=== PATIENT | female | born 1965 | race Caucasian/White ===

== ENCOUNTER → 2018-10-26 | Outpatient (CLI) | payer BC ==
--- NOTE | 2018-10-26 11:35 | Diagnostic Imaging Report ---
INDICATION: Right shoulder pain with recent fall. COMPARISON: None available. TECHNIQUE: Two views of the right shoulder were obtained. FINDINGS: Glenohumeral and acromioclavicular joints are normal in alignment. No fracture. Subacromial space is preserved. No abnormal soft tissue mineralizations. Visualized aspects of the right lung are clear. IMPRESSION: No fracture or malalignment involving the right shoulder. Dictated by: Dictated on workstation # [id number]
== END ==
LOC: RAD FS 11:06
PROVIDERS: ATTEND Nurse Practitioner Family
DX: M25.511 Pain in right shoulder (principal)
CPT/HCPCS: 73030

== ENCOUNTER 2019-04-23 15:23 | Emergency (ER) | payer BC ==
[~2019-04-23] VITALS: Ht 162.6 cm; Wt 289.0 kg
[2019-04-23 15:25] VITALS: BP 152/59
--- NOTE | 2019-04-23 15:36 | ED Lower Extremity ---
General Stated Complaint: L KNEE PAIN - HEARD IT POP Source: patient History of Present Illness Date Seen by Provider: Apr 23, 2019 Time Seen by Provider: 15:31 Initial Comments 54-year-old female presents with left knee pain. Patient has had left knee pain for at least a couple months. She reports she started having a back in January. Patient was seen last week by her primary provider and had a negative knee x- ray. Showing only osteoarthritis. Patient reports that today she was walking twisted funny and he "heard a pop. She has pain along the medial joint line. She has pain when she ambulates. She complains of some mild swelling. Patient reports she is able to bear weight on a better hurts. She has no laxity. Method of Injury: twisted Allergies and Home Medications Patient Home Medication List Home Medication List Reviewed: Yes Review of Systems Constitutional: No chills, No fever EENTM: see HPI Respiratory: no symptoms reported Cardiovascular: no symptoms reported Gastrointestinal: no symptoms reported Genitourinary: no symptoms reported Musculoskeletal: see HPI Skin: no symptoms reported Psychiatric/Neurological: No Symptoms Reported Past Xvewjbf-Amokrl-Bqritl Hx Past Med/Social Hx: Reviewed Nursing Past Med/Soc Hx Physical Exam Vital Signs Capillary Refill : Height, Weight, BMI Height: '" Weight: lbs. oz. kg; BMI Method: General Appearance: obese (morbid) Cardiovascular: normal peripheral pulses, regular rate, rhythm Respiratory: chest non-tender, lungs clear Gastrointestinal: non tender, soft Knees: left knee other (patient with medial joint line tenderness and positive patellar compression test consistent with likely meniscal injury. There is no noticeable laxity. Patient is morbidly obese complains of swelling but I do not note any acute swelling but normal body habitus or contusion) Progress/Results/Core Measures Progress Progress Note : Time: 15:48 Progress Note Patient with likely meniscal injury. Patient will be given crutches. Patient was offered knee immobilizer. She continues wqli-ahj-nmcjgff ibuprofen, I will prescribe her Naprosyn if she would like to use this instead. She can use topical lidocaine. Patient should follow-up with her primary care provider or with the pediatric to arrange for an MRI or physical therapy for further management Departure Impression Primary Impression: Internal derangement of left knee Disposition: HOME, SELF-CARE Condition: Stable Departure-Patient Inst. Referrals: [facility] Primary Care Physician DIPIKA THOMASON APRN (Family) Primary Care Physician Patient Instructions: Internal Derangement of the Knee (DC) Add. Discharge Instructions: Follow-up with your primary care provider or policy specialist for further imaging such as an MRI or physical therapy referral 4% topical lidocaine with menthol to affected area as directed on package Nathan wrap to affected knee or qgcv-ntm-cuiuhut knee immobilizer/knee sleeve Emergency department focuses on treating and ruling out life-threatening diseases. Whenever possible, a diagnosis is given. However, most patients are given an impression based on their history, physical exam, and workup during your brief time in the ER. Information about probable diagnosis and other educational material has been provided. Please take the time to read and understand this information. It is very important that you follow up with a physician as discussed during the visit today. Failure to adhere to your follow-up instructions may lead to severe disability, injury, or so please make sure to keep your appointments or obtain one as requested. Please keep in mind the emergency department is not designed to your primary care or "family doctor" and nonurgent issues are best evaluated by an outpatient physician Scripts Naproxen (Naprosyn) 500 Mg Tablet 500 MG PO BID, #30 TAB 0 Refills Prov: NEELA QUEZADA DO 04/23/19 NEELA QUEZADA DO Apr 23, 2019 15:36
[2019-04-23] MEDS ORDERED: NAPR-1071 PO (15:51)
--- OUTSIDE RECORDS SUMMARY | 2019-04-24 20:03 | XMS REPORT ---
Author Author Migration, Mariella Doctor Organization [facility] Address Unknown Phone Unavailable Care Team Providers Care Underpresser Hand Name Role Phone Migration, Doctor Unavailable Unavailable PROBLEMS Type Condition ICD9-CM Code [id number] Code Onset Dates Condition S tatus SNOMED Code Problem Essential hypertension, benign 401.1 Active 2225492 Problem Essential (primary) hypertension I10 Active 54943839 Problem Hypercholesteremia E78.00 Active 1 2184743 Problem Unspecified hypothyroidism 244.9 Act sabrina 57570341 Problem History of anemia Z86.2 Active 27 5479908 Problem Mixed hyperlipidemia E78.2 Active 681878228 Problem Hypothyroidism, unspecified E03.9 Ac tive 89476070 ALLERGIES No Information ENCOUNTERS Encounter Location Date Diagnosis [address] [address] June, [address] [address] 23 May, [address] [address] 16 May, 2018 Breast cancer screening Z12.[address] [address] 15 May, [address] [address] 09 May, 2018 Morbid obesity E66.01 ; Well woman exam with routine gynecological exam Z01.419 ; Breast cancer screening Z12.31 and Pelvic cramping R10.[address] [address] Apr, Hypercholesteremia E78.00 and Hypothyroi dism, unspecified E03.[address] [address] Apr, Essential (primary) hypertension I10 ; H ypothyroidism, unspecified E03.9 ; History of anemia Z86.2 ; Mixed hyperlipidemia E78.2 and Morbid obesity E66.01 [facility] [address] [facility] [id number] [address] [place] [address] May, [facility] [address] [facility] [id number] [address] [place] [address] May, [facility] [address] [facility] [id number] [address] [place] [address] Sep, [facility] [address] [facility] [id number] [address] [place] [address] Sep, [facility] [address] [facility] [id number] [address] [place] [address] Sep, [facility] [address] [facility] [id number] [address] [place] [address] Sep, IMMUNIZATIONS No Known Immunizations SOCIAL HISTORY Never Assessed REASON FOR VISIT EMR-[facility] PLAN OF CARE VITAL SIGNS MEDICATIONS Unknown Medications RESULTS No Results PROCEDURES No Known procedures INSTRUCTIONS MEDICATIONS ADMINISTERED No Known Medications MEDICAL (GENERAL) HISTORY Type Description Date Medical History hypertension, benign Medical History Hypothyroidism Surgical History cholecystectomy 11/2014 Hospitalization History see surgical
--- OUTSIDE RECORDS SUMMARY | 2019-04-24 20:03 | XMS REPORT ---
Author Author Mariella THOMASON Organization [facility] Address [address] [place] [address] Care Team Providers Care Accounts Payables Clerk Name Role Phone DIPIKA THOMASON Unavailable PROBLEMS Type Condition ICD9-CM Code [id number] Code Onset Dates Condition S tatus SNOMED Code Problem Hypercholesteremia E78.00 Active 1 1714050 Problem Postmenopausal bleeding N95.0 Active 14184652 Problem Mixed hyperlipidemia E78.2 Active 108300168 Problem Hypothyroidism, unspecified E03.9 Ac tive 13678692 Problem Essential (primary) hypertension I10 Active 08748031 Problem History of anemia Z86.2 Active 27 2744545 ALLERGIES No Known Allergies ENCOUNTERS Encounter Location Date Diagnosis [address] [address] Feb, Strain of left knee and leg, initial encounter S86.912A [address] [address] Jan, Hypothyroidism, unspecified E03.9 [address] [address] Dec, Essential (primary) hyperten sid I10 and Hypothyroidism, unspecified E03.9 [address] [place] [address] Dec, Hypothyroidism, unspecified E03.9 [address] [address] Oct, [address] [address] Oct, Essential (primary) hyperten sid I10 [address] [address] Oct, Acute pain of left shoulder M25.512 and Fall, initial encounter W19.XXXA [address] [address] Oct, Encounter to discuss test re sults Z71.2 and Endometrioid adenocarcinoma of uterus C55 [address] [place] [address] Oct, Postmenopausal bleeding N95. 0 ; Endometrial thickening on ultrasound R93.89 ; Enlarged uterus N85.2 and Morbid obesity E66.01 [address] [place] [address] Sep, Hypercholesteremia E78.00 [address] [place] [address] Sep, Elevated liver enzymes R74.8 and Enlarged liver R16.[address] [address] Aug, Elevated liver enzymes R74.8 ; Hypothyroidism, unspecified E03.9 and Postmenopausal bleeding N95.[address] [place] [address] Aug, Hypothyroidism, unspecified E03.9 ; Elevated liver enzymes R74.8 and Postmenopausal bleeding N95.0 [address] [place] [address] Aug, Hypothyroidism, unspecified E03.9 and Hypercholesteremia E78.00 [address] [place] [address] Aug, [address] [place] [address] Jul, Essential (primary) hyperten sid I10 [address] [place] [address] June, Morbid obesity E66.01 and At ypical squamous cells cannot exclude high grade squamous intraepithelial lesion on cytologic smear of cervix (ASC-H) R87.611 [address] [place] [address] 23 May, 2018 [address] [place] [address] 16 May, 2018 Breast cancer screening Z12. 31 [address] [place] [address] 15 May, 2018 [address] [place] [address] 09 May, 2018 Morbid obesity E66.01 ; Well woman exam with routine gynecological exam Z01.419 ; Breast cancer screening Z12.31 and Pelvic cramping R10.2 [address] [place] [address] Apr, Hypercholesteremia E78.00 an d Hypothyroidism, unspecified E03.9 [address] [place] [address] Apr, Essential (primary) hyperten sid I10 ; Hypothyroidism, unspecified E03.9 ; History of anemia Z86.2 ; Mixed hyperlipidemia E78.2 and Morbid obesity E66.01 [id number] [place] [address] May, [address] [address] May, [id number] [place] [address] Sep, [address] [address] Sep, [address] [address] Sep, [facility] [id number] [place] [address] Sep, IMMUNIZATIONS No Known Immunizations SOCIAL HISTORY Never Assessed REASON FOR VISIT Thyroid: Patient is here today for a checkup for their Thyroid. Patient is curre ntly taking Levothyroxine 200 mcg and reports doing well on the medication and h as no concerns. Eddie Floyd MA PLAN OF CARE Activity Details Follow Up 6 Months,prn Reason:Thyroid VITAL SIGNS Height 64 in 2018-05-04 Weight 281 lbs 2018-05-04 Temperature 98.0 degrees Fahrenheit 2018-05-04 Heart Rate 72 bpm 2018-05-04 Respiratory Rate 20 2018-05-04 Oximetry on room air:96 % 2018-05-04 BMI 48.23 kg/m2 2018-05-04 Blood pressure systolic 132 mmHg 2018-05-04 Blood pressure diastolic 71 mmHg 2018-05-04 MEDICATIONS Medication Instructions Dosage Frequency Start Date End Date Duration S tatus Lasix 20 MG Orally Once a day 1 -2 tablets 24h Active Spironolactone 50 MG Orally Once a day 1 tablet with food 24h Active levothyroxine 200 mcg 1 tablet by Oral route 1 time per day Sep, Active Lisinopril 5 mg 1 tablet by Oral route 1 time per day Sep, Active RESULTS No Results PROCEDURES Procedure Date Ordered Result Body Site VENIPUNCT, ROUTINE* May 04, 2018 LIPID PANEL May 04, 2018 MANUAL CELL COUNT, EACH May 04, 2018 ASSAY THYROID STIM HORMONE May 04, 2018 INSTRUCTIONS MEDICATIONS ADMINISTERED No Known Medications MEDICAL (GENERAL) HISTORY Type Description Date Medical History hypertension, benign Medical History Hypothyroidism Surgical History cholecystectomy 11/2014 Surgical History hysterectomy 11/29/2018 Hospitalization History see surgical
--- OUTSIDE RECORDS SUMMARY | 2019-04-24 20:03 | XMS REPORT ---
Author Author Mariella LOPEZ Organization [facility] Address [address] [place] [address] Care Team Providers Care Silk Soaker Name Role Phone RAINA LOPEZ Unavailable PROBLEMS Type Condition ICD9-CM Code [id number] Code Onset Dates Condition S tatus SNOMED Code Problem Hypercholesteremia E78.00 Active 1 8647377 Problem Postmenopausal bleeding N95.0 Active 53636442 Problem Mixed hyperlipidemia E78.2 Active 918894933 Problem Hypothyroidism, unspecified E03.9 Ac tive 12095130 Problem Essential (primary) hypertension I10 Active 13038333 Problem History of anemia Z86.2 Active 27 3191301 ALLERGIES No Information ENCOUNTERS Encounter Location Date Diagnosis [address] [address] Oct, [address] [address] Sep, Hypercholesteremia E78.[address] [address] Sep, Elevated liver enzymes R74.8 and Enlarge d liver R16.[address] [address] Aug, Elevated liver enzymes R74.8 ; Hypothyro idism, unspecified E03.9 and Postmenopausal bleeding N95.[address] [address] Aug, Hypothyroidism, unspecified E03.9 ; Elev ated liver enzymes R74.8 and Postmenopausal bleeding N95.[address] [address] Aug, Hypothyroidism, unspecified E03.9 and Hy percholesteremia E78.[address] [address] Aug, [address] [address] Jul, Essential (primary) hypertension I10 [address] [address] June, Morbid obesity E66.01 and Atypical squam ous cells cannot exclude high grade squamous intraepithelial lesion on cytologic smear of cervix (ASC-H) R87.[address] [address] May, [address] [address] May, Breast cancer screening Z12.[address] [address] May, [address] [address] May, Morbid obesity E66.01 ; Well woman exam with routine gynecological exam Z01.419 ; Breast cancer screening Z12.31 and Pelvic cramping R10.[address] [place] [address] Apr, Hypercholesteremia E78.00 and Hypothyroi dism, unspecified E03.[address] [address] Apr, Essential (primary) hypertension I10 ; H ypothyroidism, unspecified E03.9 ; History of anemia Z86.2 ; Mixed hyperlipidemia E78.2 and Morbid obesity E66.01 [facility] [address] [facility] [id number] [address] [place] [address] May, [facility] [address] [facility] [id number] [address] [place] [address] May, [facility] [address] [facility] [id number] [address] [place] [address] Sep, [facility] [address] [facility] [id number] [address] [place] [address] Sep, [address] [facility] [id number] [address] [address] Sep, [facility] [address] [facility] [id number] [address] [address] Sep, IMMUNIZATIONS No Known Immunizations SOCIAL HISTORY Never Assessed REASON FOR VISIT PLAN OF CARE VITAL SIGNS MEDICATIONS Unknown Medications RESULTS No Results PROCEDURES No Known procedures INSTRUCTIONS MEDICATIONS ADMINISTERED No Known Medications MEDICAL (GENERAL) HISTORY Type Description Date Medical History hypertension, benign Medical History Hypothyroidism Surgical History cholecystectomy 11/2014 Hospitalization History see surgical
--- OUTSIDE RECORDS SUMMARY | 2019-04-24 20:03 | XMS REPORT ---
Author Author Arthur, Mariella Doctor Organization [facility] Address Unknown Phone Unavailable Care Team Providers Care Agricultural Real Estate Agent Name Role Phone Migration, Doctor Unavailable Unavailable PROBLEMS Type Condition ICD9-CM Code NYB99-MO Code Onset Dates Condition S tatus SNOMED Code Problem Essential hypertension, benign 401.1 Active 9264024 Problem Essential (primary) hypertension I10 Active 86229122 Problem Hypercholesteremia E78.00 Active 1 7222704 Problem Unspecified hypothyroidism 244.9 Act sabrina 48949960 Problem History of anemia Z86.2 Active 27 4489766 Problem Mixed hyperlipidemia E78.2 Active 670973031 Problem Hypothyroidism, unspecified E03.9 Ac tive 41890740 ALLERGIES No Information ENCOUNTERS Encounter Location Date Diagnosis [address] [address] May, [address] [address] Apr, Hypercholesteremia E78.00 and Hypothyroi dism, unspecified E03.[address] [address] Apr, Essential (primary) hypertension I10 ; H ypothyroidism, unspecified E03.9 ; History of anemia Z86.2 ; Mixed hyperlipidemia E78.2 and Morbid obesity E66.01 [facility] [address] [facility] [id number] [address] [place] [address] May, [facility] [address] [facility] [id number] [address] [place] [address] May, [facility] [address] [facility] [id number] [address] [place] [address] Sep, [facility] [address] [facility] [id number] [address] [place] [address] Sep, [facility] [address] [id number] [address] Sep, [facility] [address] [facility] [id number] [address] [place] [address] Sep, IMMUNIZATIONS No Known Immunizations SOCIAL HISTORY Never Assessed REASON FOR VISIT EMR-[facility] PLAN OF CARE VITAL SIGNS MEDICATIONS Medication Instructions Dosage Frequency Start Date End Date Duration S tatus levothyroxine 200 mcg 1 tablet by Oral route 1 time per day Sep, Active Lisinopril 5 mg 1 tablet by Oral route 1 time per day Sep, Active RESULTS No Results PROCEDURES No Known procedures INSTRUCTIONS MEDICATIONS ADMINISTERED No Known Medications MEDICAL (GENERAL) HISTORY Type Description Date Medical History hypertension, benign Medical History Hypothyroidism Surgical History cholecystectomy 11/2014
--- OUTSIDE RECORDS SUMMARY | 2019-04-24 20:03 | XMS REPORT ---
Author Author Mariella LOPEZ Organization [facility] Address [address] [place] [address] Care Team Providers Care Hospital Insurance Representative Name Role Phone RAINA LOPEZ Unavailable PROBLEMS Type Condition ICD9-CM Code IOH35-TN Code Onset Dates Condition S tatus SNOMED Code Problem Hypercholesteremia E78.00 Active 1 5954775 Problem Postmenopausal bleeding N95.0 Active 92233160 Problem Mixed hyperlipidemia E78.2 Active 599884074 Problem Hypothyroidism, unspecified E03.9 Ac tive 93647313 Problem Essential (primary) hypertension I10 Active 71302635 Problem History of anemia Z86.2 Active 27 4236707 ALLERGIES No Information ENCOUNTERS Encounter Location Date Diagnosis [address] [address] Sep, [address] [address] Aug, Elevated liver enzymes R74.8 ; Hypothyro idism, unspecified E03.9 and Postmenopausal bleeding N95.[address] [address] Aug, Hypothyroidism, unspecified E03.9 ; Elev ated liver enzymes R74.8 and Postmenopausal bleeding N95.[address] [address] Aug, Hypothyroidism, unspecified E03.9 and Hy percholesteremia E78.[address] [address] Aug, [address] [address] Jul, Essential (primary) hypertension I10 [address] [address] June, Morbid obesity E66.01 and Atypical squam ous cells cannot exclude high grade squamous intraepithelial lesion on cytologic smear of cervix (ASC-H) R87.[address] [address] May, [address] [address] May, Breast cancer screening Z12.[address] [address] 15 May, [address] [address] May, Morbid obesity E66.01 ; Well woman exam with routine gynecological exam Z01.419 ; Breast cancer screening Z12.31 and Pelvic cramping R10.[address] [address] Apr, Hypercholesteremia E78.00 and Hypothyroi dism, unspecified E03.[address] [address] Apr, Essential (primary) hypertension I10 ; H ypothyroidism, unspecified E03.9 ; History of anemia Z86.2 ; Mixed hyperlipidemia E78.2 and Morbid obesity E66.01 [facility] [address] [id number] [address] [place] [address] May, [facility] [address] [facility] [id number] [address] [place] [address] May, [facility] [address] [facility] [id number] [address] [place] [address] Sep, [facility] [address] [facility] [id number] [address] [place] [address] Sep, [facility] [address] [facility] [id number] [address] [place] [address] Sep, [facility] [address] [facility] [id number] [address] [place] [address] Sep, IMMUNIZATIONS No Known Immunizations SOCIAL HISTORY Never Assessed REASON FOR VISIT PLAN OF CARE VITAL SIGNS Height 64 in 2013-09-13 Weight 349 lbs 2013-09-13 Temperature 98.7 degrees Fahrenheit 2013-09-13 Heart Rate 76 bpm 2013-09-13 Respiratory Rate 20 2013-09-13 Blood pressure systolic 160 mmHg 2013-09-13 Blood pressure diastolic 100 mmHg 2013-09-13 MEDICATIONS Unknown Medications RESULTS No Results PROCEDURES Procedure Date Ordered Result Body Site COMPLETE CBC W/AUTO DIFF WBC Sep 13, 2013 MEASURE BLOOD OXYGEN LEVEL Sep 13, 2013 ASSAY THYROID STIM HORMONE Sep 13, 2013 COMPREHEN METABOLIC PANEL Sep 13, 2013 VENIPUNCT, ROUTINE* Sep 13, 2013 INSTRUCTIONS MEDICATIONS ADMINISTERED No Known Medications MEDICAL (GENERAL) HISTORY Type Description Date Medical History hypertension, benign Medical History Hypothyroidism Surgical History cholecystectomy 11/2014 Hospitalization History see surgical
--- OUTSIDE RECORDS SUMMARY | 2019-04-24 20:03 | XMS REPORT ---
Author Author Mariella THOMASON Organization [facility] Address [address] [place] [address] Care Team Providers Care Squad Boss Name Role Phone DIPIKA THOMASON Unavailable PROBLEMS Type Condition ICD9-CM Code DFG14-CC Code Onset Dates Condition S tatus SNOMED Code Problem Hypercholesteremia E78.00 Active 1 6045652 Problem Postmenopausal bleeding N95.0 Active 34546877 Problem Mixed hyperlipidemia E78.2 Active 433835372 Problem Hypothyroidism, unspecified E03.9 Ac tive 75736455 Problem Essential (primary) hypertension I10 Active 23168893 Problem History of anemia Z86.2 Active 27 1407691 ALLERGIES No Information ENCOUNTERS Encounter Location Date Diagnosis [address] [address] [address] [address] Feb, Strain of left knee and leg, initial encounter S86.912A [address] [address] [address] [address] Jan, Hypothyroidism, unspecified E03.9 [address] [address] [address] Dec, Essential (primary) hyperten sid I10 and Hypothyroidism, unspecified E03.9 [address] [address] [address] Dec, Hypothyroidism, unspecified E03.9 [address] [place] [address] Oct, [address] [address] [address] [address] Oct, Essential (primary) hyperten sid I10 [address] [address] [address] [address] Oct, Acute pain of left shoulder M25.512 and Fall, initial encounter W19.XXXA [address] [address] [address] [address] Oct, Encounter to discuss test re sults Z71.2 and Endometrioid adenocarcinoma of uterus C55 [address] [place] [address] Oct, Postmenopausal bleeding N95. 0 ; Endometrial thickening on ultrasound R93.89 ; Enlarged uterus N85.2 and Morbid obesity E66.[address] [place] [address] Sep, Hypercholesteremia E78.[address] [place] [address] Sep, Elevated liver enzymes R74.8 and Enlarged liver R16.[address] [place] [address] Aug, Elevated liver enzymes R74.8 ; Hypothyroidism, unspecified E03.9 and Postmenopausal bleeding N95.[address] [place] [address] Aug, Hypothyroidism, unspecified E03.9 ; Elevated liver enzymes R74.8 and Postmenopausal bleeding N95.[address] [place] [address] Aug, Hypothyroidism, unspecified E03.9 and Hypercholesteremia E78.[address] [place] [address] Aug, [address] [address] [place] [address] Jul, Essential (primary) hyperten sid I10 [address] [place] [address] June, Morbid obesity E66.01 and At ypical squamous cells cannot exclude high grade squamous intraepithelial lesion on cytologic smear of cervix (ASC-H) R87.611 [address] [address] [place] [address] 23 May, 2018 [address] [address] [place] [address] 16 May, 2018 Breast cancer screening Z12. 31 [address] [address] [place] [address] 15 May, 2018 [address] [address] [place] [address] 09 May, 2018 Morbid obesity E66.01 ; Well woman exam with routine gynecological exam Z01.419 ; Breast cancer screening Z12.31 and Pelvic cramping R10.2 [address] [address] [place] [address] Apr, Hypercholesteremia E78.00 an d Hypothyroidism, unspecified E03.9 [address] [address] [place] [address] Apr, Essential (primary) hyperten sid I10 ; Hypothyroidism, unspecified E03.9 ; History of anemia Z86.2 ; Mixed hyperlipidemia E78.2 and Morbid obesity E66.01 [id number] [place] [address] May, [place] [address] [address] May, [place] [address] [address] Sep, [place] [address] [address] [address] Sep, [place] [address] [address] Sep, [place] [address] Sep, IMMUNIZATIONS No Known Immunizations SOCIAL HISTORY Never Assessed REASON FOR VISIT Medication and lab orders PLAN OF CARE VITAL SIGNS MEDICATIONS Medication Instructions Dosage Frequency Start Date End Date Duration S tennille Rosuvastatin Calcium 10 MG Orally Once a day 1 tablet 24h 2018 30 day(s) Active Levothyroxine Sodium 200 MCG Orally Once a day 1 tablet on an empty stomach in the morning 24h Apr, 30 day(s) Active RESULTS No Results PROCEDURES No Known procedures INSTRUCTIONS MEDICATIONS ADMINISTERED No Known Medications MEDICAL (GENERAL) HISTORY Type Description Date Medical History hypertension, benign Medical History Hypothyroidism Surgical History cholecystectomy 11/2014 Surgical History hysterectomy 11/29/2018 Hospitalization History see surgical
--- OUTSIDE RECORDS SUMMARY | 2019-04-24 20:03 | XMS REPORT | Continuity of Care Document ---
Author Organization Unknown Address Unknown Phone Unavailable Allergies There is no data. Medications There is no data. Problems Date Dx Coded Attending Type Code Diagnosis Diagnosed By 09/13/2013 RAINA LOPEZ APRN 244 .9 HYPOTHYROIDISM 09/13/2013 RAINA LOPEZ APRN 401 .1 HYPERTENSION, BENIGN ESSENTIAL 10/28/2018 BREONNA MARVIN Ot M25.51 1 PAIN IN RIGHT SHOULDER 11/11/2018 BREONNA MARVIN Ot M25.51 1 PAIN IN RIGHT SHOULDER Procedures Code [place] [address] ROUT INE VENIPUNCTURE 09/13/2013 58946 CMP 09/13/2013 02701 TSH 09/13/2013 44580 CBC 09/13/2013 51439 OXIM ETRY - OVERNIGHT 09/13/2013 Results Test Result Range LIPID PANEL - 05/04/18 08:46 CHOLESTEROL, TOTAL 252 mg/dL <200 HDL CHOLESTEROL 33 mg/dL >50 TRIGLYCERIDES 290 mg/dL <150 LDL-CHOLESTEROL 171 mg/dL (calc) NRG CHOL/HDLC RATIO 7.6 (calc) <5.0 NON HDL CHOLESTEROL 219 mg/dL (calc) <13 0 CBC w/MANUAL DIFF - 05/04/18 08:46 WHITE BLOOD CELL COUNT 13.0 Thousand/uL 3.8-10.8 RED BLOOD CELL COUNT 4.46 Million/uL 3.8 0-5.10 HEMOGLOBIN 12.0 g/dL 11.7-15.5 HEMATOCRIT 37.8 % 35.0-45.0 MCV 84.8 fL 80.0-100.0 MCH 26.9 pg 27.0-33.0 MCHC 31.7 g/dL 32.0-36.0 RDW 17.4 % 11.0-15.0 PLATELET COUNT 249 Thousand/uL 140-400 MPV TNP fL NRG ABSOLUTE NEUTROPHILS 9100 cells/uL 1500- 7800 ABSOLUTE LYMPHOCYTES 1820 cells/uL 850-3 900 ABSOLUTE MONOCYTES 520 cells/uL 200-950 ABSOLUTE EOSINOPHILS 390 cells/uL 15-500 ABSOLUTE BASOPHILS 130 cells/uL 0-200 NEUTROPHILS 70 % NRG LYMPHOCYTES 14 % NRG MONOCYTES 4 % NRG EOSINOPHILS 3 % NRG BASOPHILS 1 % NRG ABSOLUTE BAND NEUTROPHILS 1040 cells/uL 0-750 BAND NEUTROPHILS 8 % NRG COMMENT(S) NRG TSH - 05/04/18 08:46 TSH 0.11 mIU/L NRG SUREPATH PAP AND HPV mRNA E6/E7 - 10:53 CLINICAL INFORMATION: NRG LMP: NRG PREV. PAP: NRG PREV. BX: NRG SOURCE: Cervix NRG STATEMENT OF ADEQUACY: NRG INTERPRETATION/RESULT: NRG FACTORY ENGINEER: NRG HPV mRNA E6/E7, SUREPATH VIAL Not Detected NOT DETECTED GENERAL CATEGORIZATION: NRG PATHOLOGIST: NRG COMMENT NRG PATHOLOGY REPORT (TISSUE PAHOLOGY) - 10:19 A SOURCE NRG A GROSS DESCRIPTION NRG A DIAGNOSIS NRG CLINICAL INFORMATION NRG PATHOLOGIST NRG TSH - 08/31/18 09:16 TSH 0.18 mIU/L NRG SUREPATH PAP RFX HPV mRNA E6/E7 - 16:53 CLINICAL INFORMATION: NRG LMP: NRG PREV. PAP: NRG PREV. BX: NRG SOURCE: NRG STATEMENT OF ADEQUACY: NRG INTERPRETATION/RESULT: NRG FACTORY ENGINEER: NRG GENERAL CATEGORIZATION: NRG COMMENT: NRG PATHOLOGIST: NRG COMMENT NRG PATHOLOGY REPORT (TISSUE PAHOLOGY) - 05/28 16:53 A SOURCE NRG A GROSS DESCRIPTION NRG A DIAGNOSIS NRG CLINICAL INFORMATION NRG PATHOLOGIST NRG Encounters ACCT No. Visit Date/Time Discharge Status Pt. Type Provider Facility Loc./Unit Complaint [id number] 09/13/2013 08:44:00 09/13/2013 23:59: 59 CLS Outpatient ESTELAL BRITTANYLUISITORAINA Maureen [id number] 10/26/2018 11:06:00 019 23:59:59 CLS Outpatient BREONNA MARVIN [facility] RAD FS M25.512 [id number] 03/11/2019 14:20:00 03/11/2019 23:59:5 9 CLS Outpatient DIPIKA [facility]OMAS[facility] [id number] 10/13/2018 13:30:00 Document Registration [id number] 08/31/2018 09:00:00 Document Registration [id number] 06/22/2018 10:00:00 Document Registration [id number] 05/18/2018 10:20:00 Document Registration [id number] 05/04/2018 08:00:00 Document Registration
== END 2019-04-23 16:07 | disposition home or self-care (01) ==
LOC: EDUNIT# 15:23 → ER FS 15:25
DX: M23.92 Unspecified internal derangement of left knee (principal); X50.1XXA Overexertion from prolonged static or awkward postures, initial encounter; Y93.01 Activity, walking, marching and hiking
CPT/HCPCS: 99283

== ENCOUNTER → 2019-05-05 | Outpatient (CLI) | payer BC ==
[~2019-05-05] MED LIST: NAPR-1071 PO
--- NOTE | 2019-05-05 11:20 | Diagnostic Imaging Report ---
PROCEDURE: MRI left joint lower extremity without contrast. TECHNIQUE: Multiplanar, multisequence non contrast-enhanced MRI of the left lower extremity was accomplished. INDICATION: [place] and felt a pop about 2 weeks ago. Continued pain. EXAMINATION: MRI of the left lower extremity without contrast 05/05/2019. FINDINGS: There is diffuse abnormal signal intensity throughout the distal femur. This predominantly involves the posterior lateral femoral metaphysis and extends into the epiphysis and adjacent posterior soft tissues. Given the diffuse nature, it is difficult to measure. However an approximate measurement of this lesion of 4.4 cm AP dimension 5.8 cm craniocaudal dimension and 4.8 cm transverse dimension. This likely emanates from the intramedullary canal of the femoral metaphysis and extends through the posterior cortex of the femur with a large soft tissue component noted. A similar lesion is noted involving the posterior aspect of the proximal tibia both metaphysis and epiphysis. This lesion is also difficult to measure but is approximately 3.97 mm AP dimension 4.2 cm craniocaudal dimension and 4.8 cm in transverse dimension. This also demonstrates focal cortical breakthrough of the posterior aspect of the tibia. A large soft tissue component is noted. There is diffuse surrounding edema about both lesions, both intraosseous and soft tissue edema noted. There are multiple prominent hyperintensities, posterior soft tissues likely enlarged reactive or metastatic lymph nodes. The largest is 2.6 cm in greatest dimension. There is a small joint effusion. There is nonspecific diffuse subcutaneous edema about the knee. The ACL is intact. The PCL is intact. Extensor mechanism intact. MCL and lateral collateral ligamentous complex intact. The lateral meniscus demonstrates diffuse abnormal signal intensity throughout its entirety. This is worst in the anterior horn consistent with a focal tear anteriorly. Diffuse abnormal signal intensity throughout the entire medial meniscus is also noted worst posteriorly and consistent with a tear extending down to the tibial surface. IMPRESSION: 1. Abnormal lesions in the distal femur and proximal tibia highly suspicious for metastatic process. Primary lesions not excluded. Clinical correlation with history and possibly sampling of these areas may be warranted, orthopedic oncological consultation recommended. 2. Given the diffuse nature a underlying septic joint or infectious etiology not excluded clinically correlate with the again symptoms and history. 3. Likely reactive or metastatic lymph nodes posterior to the knee with other soft tissue masses less likely but not excluded at this time. 4. Meniscal tears and other findings as above. Called and faxed to Roselyn Márquez APRN at 11:15 a.m. by alysia. Dictated on workstation # [id number]
== END ==
LOC: RAD 09:39
PROVIDERS: ATTEND Nurse Practitioner Family
DX: S89.92XD Unspecified injury of left lower leg, subsequent encounter (principal); M25.562 Pain in left knee
CPT/HCPCS: 73721